=== PATIENT | male | born 1985 ===

== ENCOUNTER 2018-12-19 16:36 | Emergency (ER) | payer SELFPAY ==
[2018-12-19 17:10] VITALS: BP 139/93; PULSE 106; RESP 18; TEMP 36.6; O2SAT 98
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
[2018-12-19 18:21] LABS: HIV 1/2 Ab Rapid Negative (Negative)
[2018-12-19 20:30] LABS: Total Protein 9.6 g/dL (6.4-8.2)
[2018-12-19 20:31] LABS: ALT 70 U/L (12-78); AST 50 U/L (15-37); Alkaline Phosphatase 82 U/L (46-116); Bilirubin, Direct 0.09 mg/dL (0.00-0.20)
[2018-12-21 11:19] LABS: HBs Antibody, Quant >1000.0 mIU/mL; Hepatitis B Surface Ab Positive; Hepatitis B Surface Ag Negative (NEGAT)
[2018-12-21 11:36] LABS: HIV-1/2 Ag & Ab Screen Negative (NEGAT); Hepatitis C Ab w Rflx HCV PCR Negative (NEGAT)
== END 2018-12-19 18:04 | disposition home or self-care (01) ==
LOC: ER 12-20 10:36
PROVIDERS: Emergency Provider Physician Assistant
DX: S60.511A Abrasion of right hand, initial encounter (principal); S60.512A Abrasion of left hand, initial encounter; S80.211A Abrasion, right knee, initial encounter; S80.212A Abrasion, left knee, initial encounter; Z77.21 Contact with and (suspected) exposure to potentially hazardous body fluids; Y35.811A Legal intervention involving manhandling, law enforcement official injured, initial encounter; Y99.0 Civilian activity done for income or pay
CPT/HCPCS: 36415; 80076; 86706; 86803; 87340; 87389; 99282